=== PATIENT | female | born 1985 | race Caucasian/White ===

== ENCOUNTER 2024-02-16 07:40 | Outpatient (CLI) | payer BC | END 2024-02-16 07:41 | disposition home or self-care (01) | LOC: RAD 07:40 | PROVIDERS: ATTEND Family Medicine | DX: M79.605 Pain in left leg (principal) ==

== ENCOUNTER 2025-03-30 07:19 | Outpatient (CLI) | payer BC | END 2025-03-30 07:20 | disposition home or self-care (01) | LOC: RAD 07:19 | PROVIDERS: ATTEND Thoracic Surgery (Cardiothoracic Vascular Surgery) | DX: M79.89 Other specified soft tissue disorders (principal) ==